=== PATIENT | male | born 2005 | race Caucasian/White ===

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

== ENCOUNTER 2023-09-02 18:54 | Outpatient (CLI) | payer BC ==
[2023-09-03 13:41] LABS: Urine Alcohol Negative (Negative); Urine Barbiturate Negative (Negative); Urine Cocaine Negative (Negative); Urine Methadone Negative (Negative); Urine Opiates Negative (Negative); Urine Phencyclidine Negative (Negative)
--- NOTE | 2023-09-09 21:31 | P.PCN ---
Date of Procedure: 09/02/23 Operative Findings: Polysomnography report Date of services 09/02/2023 History 17-year-old male patient presented to me with chronic hypersomnia. The patient was encountering frequent sleep paralysis. The patient has a family history of narcolepsy involving his mother who is currently being treated with Nuvigil. No hallucinations. No cataplexy. The patient is obese with a body mass index of 30.9. The patient has loud snoring and has been told to stop breathing on multiple occasions in the middle of the night by his girlfriend. His chronic anxiety and depression and bipolar disorder and is on a combination of olanzapine, amitriptyline and Lamictal and he has been maintained on those medications for several years. He has history of childhood depression with previous history of suicidal ideations and currently is under the care of psychiatry through [facility]. He also complains of chronic fatigue, lack of energy and sleepiness. Based on that, PSG was ordered to be followed by MSLT. Pertinent physical findings The patient's weight is 230 pounds with a body mass index of 30.9 Technical description The patient was studied using a standard complex polysomnography protocol that included recording of the 2 EKG, Central, occipital and frontal EEG, right and left outer canthus EOG, submental EMG, right and left anterior tibialis EMG, respiratory airflow by thermocouple and or pressure/flow transducer, respiratory efforts by abdominal and thoracic PVDF belts, oxygen saturation by cable oximetry. Position by observation synchronized the PSG . Equipment used: [employer]. Sleep characteristics Total recording duration was 4 3 7 minutes. The total sleep time was 414 minutes. The wake after sleep onset time was 14.5 minutes. Overall sleep efficiency was 94.7%. The latency to sleep onset was 8 minutes. The sleep architecture was characterized by 0.7% stage I, 35.3% stage II, 41.3% stage III and 22.7% REM sleep. The latency to sleep onset was 8 minutes. The latency to REM sleep was 90 minutes. The total arousal index was 3.3 Respiratory analysis The sleep study showed a total of 2 obstructive events of which 0 were obstructive apneas, 0 mixed apneas and 2 were obstructive hypopneas and the resulting AHI was 0.3. No central events were noted. No significant nocturnal oxygen desaturations Periodic limb movements The patient had a total of 1 periodic limb movement activity with arousals with an index of 0.1 Sleep continuity summary There were a total of 23 arousals with an arousal index of 3.3. Respiratory arousal index was 0 Cardiac summary The average heart rate was 71 with a minimum heart rate of 66 and a maximum heart rate of 77 Assessment Chronic hypersomnia, no evidence of any sleep breathing disorder. Abnormal sleep architecture with overexpression of stage III sleep. Chronic snoring Obesity with a BMI of 30.4 Sleep paralysis, no hypnagogic hallucinations, no cataplexy Positive family history of obstructive sleep apnea Severe depression/bipolar disorder maintained on a combination of olanzapine, amitriptyline and Lamictal Plan Proceed with a secondary MSLT to rule out possibility of narcolepsy. MSLT report Date of service is 09/03/2023 The MSLT was performed following a full night polysomnography. The patient was taken off the antidepressant including the tricyclic antidepressant and olanzapine medication for around 2 weeks prior to the procedure. The electrographic variables included EEG, EMG, EEG and EEG. Patient was monitored throughout 20-minute opportunities to sleep at 2-hour intervals. For each nap, the patient was allowed 20 minutes to fall asleep. Once asleep, the patient was awakened after 15 minutes. Between naps, the patient was kept alert. Results The patient was given a total of 4 opportunities to fall asleep. The patient was able to generate sleep in all 4 those naps. The mean sleep latency for 4 naps was 5.8 minutes. Specifically, the sleep latency for nap #1 was 4.5 minutes, nap #2 was 4 minutes, nap #3 was 9 minutes and nap #4 was 5.5 minutes. The patient also had REM sleep in all those naps and the total number of REM episodes and 4 naps was 4. 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 Chronic hypersomnia Sleep paralysis No cataplexy Positive family history for narcolepsy Plan Results will be discussed with the patient The patient will be started on stimulant. Recommend starting the patient on Nuvigil and the dose will be titrated based on his clinical response and will continue to follow in the office. The psychiatric medications can be resumed.
== END 2023-09-03 14:30 | disposition home or self-care (01) ==
LOC: 3 N SLEEP 18:54
PROVIDERS: ATTEND Internal Medicine Critical Care Medicine
DX: G47.10 Hypersomnia, unspecified (principal); G47.419 Narcolepsy without cataplexy; G47.8 Other sleep disorders; E66.9 Obesity, unspecified; F31.9 Bipolar disorder, unspecified; F41.9 Anxiety disorder, unspecified; Z68.30 Body mass index [BMI] 30.0-30.9, adult; Z82.0 Family history of epilepsy and other diseases of the nervous system
CPT/HCPCS: 80306; 95805; 95810